=== PATIENT | female | born 1975 | race Two or more races ===

== ENCOUNTER 2021-12-22 18:36 | Emergency (ER) | payer OTHER ==
[~2021-12-22] VITALS: Ht 172.7 cm; Wt 85.3 kg
[2021-12-22] MEDS ORDERED: MECLIZINE HCL 25 MG TABLET ONE (19:28)
[2021-12-22] MEDS ORDERED: METOCLOPRAMIDE HCL 10 MG/2 ML VIAL ONE (19:28)
[2021-12-22] MEDS ORDERED: IV NS 0.9% 1,000 ML BAG IV ONE (19:30)
[2021-12-22] MEDS ORDERED: MECLIZINE HCL 12.5 MG TABLET PO ONE (19:30)
[2021-12-22] MEDS ORDERED: METOCLOPRAMIDE HCL 10 MG/2 ML VIAL IV ONE (19:30)
--- NOTE | 2021-12-22 19:30 | NUR ---
PT BIBRA C/O VERTIGO AND N/VX 1 DAY. PT AAOX4 BREATHING EVENLY AND UNLABORED. PT STATES SHE HAS NOT BEEN DRINKING ENOUGH WATER AND ANY MOVEMENT MAKES HER FEEL MORE NAUSEATED. PT ATTACHED TO MONITOR AND POX. WILL CONTINUE TO MONITOR.
[2021-12-22 19:55] LABS: BASOPHILS % (AUTO) 0.1 % (0.0-2.0); EOSINOPHILS % (AUTO) 0.1 % (0.0-6.0); HEMATOCRIT 35 % (33-45); HEMOGLOBIN 11.9 g/dL (11.5-14.8); LYMPHOCYTES # (AUTO) 1.7 K/uL (0.8-4.8); LYMPHOCYTES % (AUTO) 23.7 % (20.0-44.0); MEAN CORPUSCULAR HGB CONC 34 g/dl (31.0-36.0); MEAN CORPUSCULAR VOLUME 78 fL (82-100); MONOCYTES # (AUTO) 0.4 K/uL (0.1-1.30); MONOCYTES % (AUTO) 6.2 % (2.0-12.0); NEUTROPHILS # (AUTO) 4.9 K/uL (1.8-8.9); NEUTROPHILS % (AUTO) 69.9 % (43.0-81.0); PLATELET COUNT (AUTO) 228 K/uL (150-450); RED BLOOD CELL COUNT(AUTO) 4.46 MIL/uL (4.0-5.2); WHITE BLOOD COUNT (AUTO) 7.1 K/uL (4.3-11.0)
[2021-12-22 19:58] LABS: CALCIUM, SERUM 9.2 mg/dL (8.5-10.1); CARBON DIOXIDE 23 mmol/L (21-32); CHLORIDE 103 mmol/L (98-107); GLUCOSE 133 mg/dL (74-106); POTASSIUM 3.6 mmol/L (3.5-5.1); SODIUM SERUM 136 mmol/L (136-145); UREA NITROGEN, BLOOD 12 mg/dL (7-18)
[2021-12-22 20:03] LABS: ALANINE AMINOTRANSFERASE 23 U/L (12-78); ALBUMIN 3.6 g/dL (3.4-5.0); ALKALINE PHOSPHATASE 54 U/L (46-116); ASPARTATE AMINOTRANSFERASE 14 U/L (15-37); BILIRUBIN,DIRECT 0.1 mg/dL (0.0-0.2); BILIRUBIN,TOTAL 0.3 mg/dL (0.2-1.0)
[2021-12-22] MEDS ORDERED: MECL-159 PO (20:46)
--- NOTE | 2021-12-22 20:55 | NUR ---
Patient discharged to home in stable condition. Written and verbal after care instructions given. Patient verbalizes understanding of instruction. IV removed. Catheter intact and site benign. Pressure and 4x4 applied to site. No bleeding noted. pT ambulatory with a steady gait. Pt taken home by
[2021-12-22 20:57] VITALS: BP 127/69
== END 2021-12-22 20:55 | disposition home or self-care (01) ==
LOC: ER 18:57
DX: R42 Dizziness and giddiness (principal)
CPT/HCPCS: 99285; 96374; 70450; 96361; 93005; 85025; 80048; 80076; 36415; 84484; J8597; J2765; J7030